=== PATIENT | male | born 1950 | race Caucasian/White ===

== ENCOUNTER 2017-03-20 23:41 | Emergency (ER) | payer OTHER ==
[2017-03-21 01:04] LABS: UA SPECIFIC GRAVITY <=1.005 (1.005-1.035); microscopic required? YES; urine erythrocyte 2+ (NEGATIVE)
[2017-03-21 01:07] LABS: PLATELET COUNT 190 x10^3mcL (130-400); RED CELL DISTRIBUTION WIDTH 12.5 % (11.5-14.5)
[2017-03-21 01:16] LABS: ALKALINE PHOSPHATASE 101 U/L (46-116); ALT/SGPT 16 U/L (16-63); AMYLASE 91 U/L (25-115); AST/SGOT 13 U/L (15-37); BILIRUBIN TOTAL 0.7 mg/dL (0.20-1.00); CALCIUM 8.8 mg/dL (8.5-10.1); CARBON DIOXIDE 24.8 mmol/L (21-32); CHLORIDE SERUM 101 mmol/L (98-107); CREATININE SERUM 1.1 mg/dL (0.7-1.3); GFR1 > 60 mL/min; GLUCOSE SERUM 189 mg/dL (74-106); LIPASE 376 IU/L (73-393); POTASSIUM SERUM 4.3 mmol/L (3.5-5.1); SODIUM SERUM 132 mmol/L (136-145); TOTAL PROTEIN, SERUM 6.7 g/dL (6.4-8.2)
[2017-03-21 01:17] LABS: ALBUMIN 3.2 g/dL (3.4-5.0)
[2017-03-21 01:27] LABS: BAND NEUTROPHIL 5 % (0-10); BASOPHIL 0 % (0-2); MONOCYTE 5 % (0-7); SEGMENTED NEUTROPHILS 83 % (37-75)
[2017-03-21 01:28] LABS: PLATELET MORPHOLOGY PLATELETS NORMAL; rbc morphology (normal/abnorm) NORMAL (NORMAL)
[2017-03-21 03:49] VITALS: BP 132/74
== END 2017-03-21 03:49 | disposition home or self-care (01) ==
LOC: ED 23:41
PROVIDERS: Emergency Medicine
DX: R10.9 Unspecified abdominal pain (principal); R31.29 Other microscopic hematuria; E11.9 Type 2 diabetes mellitus without complications

== ENCOUNTER 2017-07-17 21:05 | Emergency (ER) | payer OTHER ==
[2017-07-17 21:48] LABS: BASOPHIL % 0.5 % (0-2); PLATELET COUNT 242 x10^3mcL (130-400); RED CELL DISTRIBUTION WIDTH 13.8 % (11.5-14.5)
[2017-07-17 21:59] LABS: CREATININE SERUM 1.3 mg/dL (0.7-1.3); POTASSIUM SERUM 3.5 mmol/L (3.5-5.1)
[2017-07-17 22:04] LABS: ALBUMIN 3.8 g/dL (3.4-5.0); BILIRUBIN TOTAL 0.7 mg/dL (0.20-1.00); TOTAL PROTEIN, SERUM 7.9 g/dL (6.4-8.2)
[2017-07-17 23:09] VITALS: BP 143/73
== END 2017-07-17 23:10 | disposition home or self-care (01) ==
LOC: ED 21:05
PROVIDERS: Emergency Medicine
PROC: 3E033NZ Introduction of Analgesics, Hypnotics, Sedatives into Peripheral Vein, Percutaneous Approach (ICD-10-PCS; principal; 2017-07-17)
PROC: 3E033GC Introduction of Other Therapeutic Substance into Peripheral Vein, Percutaneous Approach (ICD-10-PCS; 2017-07-17)
DX: R42 Dizziness and giddiness (principal); T50.995A Adverse effect of other drugs, medicaments and biological substances, initial encounter; R53.1 Weakness; F41.1 Generalized anxiety disorder; E11.9 Type 2 diabetes mellitus without complications; I10 Essential (primary) hypertension; E78.00 Pure hypercholesterolemia, unspecified; Y92.9 Unspecified place or not applicable
CPT/HCPCS: 82962; 83880; J2060; J2765; J7030

== ENCOUNTER 2018-01-10 12:22 | Inpatient (IN) | payer OTHER ==
[~2018-01-10] VITALS: Ht 170.2 cm; Wt 83.5 kg
[2018-01-10 13:08] LABS: BASOPHIL % 0.4 % (0-2); PLATELET COUNT 287 x10^3mcL (130-400); RED CELL DISTRIBUTION WIDTH 15.6 % (11.5-14.5)
[2018-01-10 13:24] LABS: CALCIUM 8.7 mg/dL (8.5-10.1); CARBON DIOXIDE 23.4 mmol/L (21-32); CREATININE SERUM 1.5 mg/dL (0.7-1.3); POTASSIUM SERUM 4.6 mmol/L (3.5-5.1)
[2018-01-10 13:29] LABS: ALBUMIN 2.2 g/dL (3.4-5.0); BILIRUBIN TOTAL 2.74 mg/dL (0.20-1.00); TOTAL PROTEIN, SERUM 6.5 g/dL (6.4-8.2)
[2018-01-10 13:43] LABS: UA SPECIFIC GRAVITY 1.015 (1.005-1.035); microscopic required? YES; urine erythrocyte 3+ (NEGATIVE)
[2018-01-10 14:25] LABS: CHOLESTEROL/HDL RATIO 4.6; PHOSPHOROUS 3.5 mg/dL (2.5-4.9)
[2018-01-10 14:26] LABS: AMPHETAMINE QUAL UR NONE DETECTED (NEG <=1000)
[2018-01-10 14:33] LABS: T3 TOTAL 0.66 ng/mL
[2018-01-10 14:34] LABS: FREE T4 1.77 ng/dL (0.76-1.46); FREE THYROXINE INDEX 2.9 ug/dL (1.4-4.5); T4(THYROXINE) 8.3 ug/dL (4.7-13.3)
[2018-01-10 14:39] VITALS: BP 155/92
[2018-01-10] MEDS ORDERED: SYNTHROID0.1 MG PO (15:23)
[2018-01-10] MEDS ORDERED: NORTRIPTYLINE H25 MG PO (15:24)
[2018-01-10] MEDS ORDERED: LIPI10 PO (15:24)
[2018-01-10] MEDS ORDERED: LORAZEPAM1 MG PO (15:25)
[2018-01-10] MEDS ORDERED: METOCLOPRAMIDE H5 M1 PO (15:25)
[2018-01-10] MEDS ORDERED: NAPROXEN500 MG PO (15:26)
[2018-01-10] MEDS ORDERED: BAYER ASPIRIN R81 MG PO (15:27)
[2018-01-10 17:13] VITALS: BP 131/89
[2018-01-10 21:23] VITALS: BP 146/85
[2018-01-11 05:16] VITALS: BP 112/83
[2018-01-11 06:59] LABS: CALCIUM 8.1 mg/dL (8.5-10.1); CARBON DIOXIDE 24.8 mmol/L (21-32); CREATININE SERUM 1.4 mg/dL (0.7-1.3); MAGNESIUM 1.8 mg/dL (1.8-2.4); PHOSPHOROUS 3.9 mg/dL (2.5-4.9); POTASSIUM SERUM 4.7 mmol/L (3.5-5.1)
[2018-01-11 07:02] LABS: BASOPHIL % 0.5 % (0-2); PLATELET COUNT 258 x10^3mcL (130-400)
[2018-01-11 07:15] LABS: RED CELL DISTRIBUTION WIDTH 15.9 % (11.5-14.5)
[2018-01-11 09:40] VITALS: BP 134/80
[2018-01-11 13:20] VITALS: BP 126/80
[2018-01-11 18:47] VITALS: BP 141/85
[2018-01-11 21:33] VITALS: BP 144/81
[2018-01-11 22:29] LABS: APPEARANCE FLUID CLOUDY; COLOR FLUID PALE YELLOW; LYMPHOCYTE FLUID 53 %; MONOCYTE FLUID 21 %; RBC FLUID 655 /cumm; SOURCE FLUID PARACENTESIS; WBC FLUID 195 /cumm
[2018-01-12 05:26] VITALS: BP 140/83
[2018-01-12 06:51] LABS: BASOPHIL % 0.2 % (0-2); PLATELET COUNT 270 x10^3mcL (130-400)
[2018-01-12 06:55] LABS: RED CELL DISTRIBUTION WIDTH 15.9 % (11.5-14.5)
[2018-01-12 07:12] LABS: CALCIUM 8.2 mg/dL (8.5-10.1); CARBON DIOXIDE 25.3 mmol/L (21-32); CREATININE SERUM 1.3 mg/dL (0.7-1.3); MAGNESIUM 1.8 mg/dL (1.8-2.4); PHOSPHOROUS 3.2 mg/dL (2.5-4.9); POTASSIUM SERUM 5.1 mmol/L (3.5-5.1)
[2018-01-12 09:46] VITALS: BP 122/83
[2018-01-12 16:54] VITALS: BP 123/89
[2018-01-12 21:52] VITALS: BP 116/79
[2018-01-13 05:15] VITALS: BP 103/76
[2018-01-13 07:01] LABS: BASOPHIL % 0.6 % (0-2); PLATELET COUNT 288 x10^3mcL (130-400)
[2018-01-13 07:02] LABS: CALCIUM 8.2 mg/dL (8.5-10.1); CARBON DIOXIDE 25.9 mmol/L (21-32); CREATININE SERUM 1.4 mg/dL (0.7-1.3); MAGNESIUM 1.8 mg/dL (1.8-2.4); PHOSPHOROUS 2.9 mg/dL (2.5-4.9); POTASSIUM SERUM 5.1 mmol/L (3.5-5.1)
[2018-01-13 07:08] LABS: RED CELL DISTRIBUTION WIDTH 15.7 % (11.5-14.5)
[2018-01-13 10:16] VITALS: BP 125/81
[2018-01-13 13:12] LABS: BILIRUBIN DIRECT 1.37 mg/dL (0.0-0.2); BILIRUBIN TOTAL 1.7 mg/dL (0.20-1.00)
[2018-01-13 13:20] LABS: ALBUMIN 1.7 g/dL (3.4-5.0); TOTAL PROTEIN, SERUM 5.6 g/dL (6.4-8.2)
[2018-01-13 14:08] VITALS: BP 130/76
[2018-01-13 16:28] VITALS: BP 118/88
[2018-01-13 21:54] VITALS: BP 134/93
[2018-01-14 05:08] VITALS: BP 120/89
[2018-01-14 07:49] LABS: BASOPHIL % 0.3 % (0-2); PLATELET COUNT 293 x10^3mcL (130-400)
[2018-01-14 07:54] LABS: CALCIUM 8.4 mg/dL (8.5-10.1); CARBON DIOXIDE 25.7 mmol/L (21-32); CHLORIDE SERUM 104 mmol/L (98-107); CREATININE SERUM 1.2 mg/dL (0.7-1.3); GFR1 > 60 mL/min; GLUCOSE SERUM 98 mg/dL (74-106); MAGNESIUM 1.7 mg/dL (1.8-2.4); PHOSPHOROUS 2.9 mg/dL (2.5-4.9); POTASSIUM SERUM 4.1 mmol/L (3.5-5.1); SODIUM SERUM 137 mmol/L (136-145)
[2018-01-14 08:15] VITALS: BP 122/89
[2018-01-14 08:51] VITALS: Ht 170.2 cm; Wt 83.5 kg
[2018-01-14 12:49] VITALS: BP 138/82
[2018-01-14 18:38] VITALS: BP 110/83
[2018-01-14 20:59] VITALS: BP 137/77
[2018-01-15 05:53] VITALS: BP 110/68
[2018-01-15 08:06] LABS: BASOPHIL % 0.4 % (0-2); PLATELET COUNT 281 x10^3mcL (130-400)
[2018-01-15 08:13] LABS: RED CELL DISTRIBUTION WIDTH 16.3 % (11.5-14.5)
[2018-01-15 10:13] VITALS: BP 118/81
[2018-01-15 14:00] VITALS: BP 125/88
[2018-01-15 17:23] VITALS: BP 144/86
[2018-01-15] MEDS ORDERED: LIPI10 PO (18:07)
[2018-01-15] MEDS ORDERED: ECO81 PO (18:08)
[2018-01-15] MEDS ORDERED: BG FS (18:08)
[2018-01-15] MEDS ORDERED: ALD50 PO (18:08)
[2018-01-15] MEDS ORDERED: ATI1 PO (18:08)
[2018-01-15] MEDS ORDERED: L20I IV (18:09)
[2018-01-15] MEDS ORDERED: COL100 PO (18:09)
[2018-01-15] MEDS ORDERED: SEN PO (18:09)
[2018-01-15] MEDS ORDERED: DEXPF IV (18:09)
[2018-01-15] MEDS ORDERED: ONDANSETRON4 M3 PO (18:10)
[2018-01-15] MEDS ORDERED: LEVEMIR100 U/M1 SC (18:10)
[2018-01-15] MEDS ORDERED: HUMULIN R100 U/1 M1 SC (18:10)
[2018-01-15] MEDS ORDERED: REG10 PO (18:10)
[2018-01-15] MEDS ORDERED: SYN1 PO (18:11)
[2018-01-15 18:21] VITALS: BP 144/86
[2018-01-15 19:45] VITALS: BP 131/82
== END 2018-01-15 19:52 | disposition short-term general hospital (02) | DRG 435 ==
LOC: ED 12:22 → DU 13:31
PROVIDERS: Emergency Medicine; Family Medicine; Internal Medicine Gastroenterology; Student in an Organized Health Care Education/Training Program
PROC: 0W9G3ZZ Drainage of Peritoneal Cavity, Percutaneous Approach (ICD-10-PCS; principal; 2018-01-11)
PROC: 0DB78ZX Excision of Stomach, Pylorus, Via Natural or Artificial Opening Endoscopic, Diagnostic (ICD-10-PCS; 2018-01-11)
DX: C78.7 Secondary malignant neoplasm of liver and intrahepatic bile duct (principal); N17.0 Acute kidney failure with tubular necrosis; E43 Unspecified severe protein-calorie malnutrition; E87.1 Hypo-osmolality and hyponatremia; R18.8 Other ascites; E11.9 Type 2 diabetes mellitus without complications; F32.9 Major depressive disorder, single episode, unspecified; E03.9 Hypothyroidism, unspecified; R74.0 Nonspecific elevation of levels of transaminase and lactic acid dehydrogenase [LDH]; R31.9 Hematuria, unspecified; E78.5 Hyperlipidemia, unspecified; F41.9 Anxiety disorder, unspecified; D64.9 Anemia, unspecified; E66.9 Obesity, unspecified; Z68.26 Body mass index [BMI] 26.0-26.9, adult; Z79.82 Long term (current) use of aspirin; Z79.899 Other long term (current) drug therapy
CPT/HCPCS: 43235; 76770; 82962; 83516; 83880; 84439; 88344; J1200; J1610; J1815; J1885; J1940; J2001; J2250; J2270; J2310; J2543; J2765; J3010; J3490; J7030; J8597; Q0092; Q9966; Q9967